=== PATIENT | female | born 1980 | race Two or more races ===

== ENCOUNTER 2020-07-24 21:42 | Emergency (ER) | payer OTHER ==
[2020-07-24 21:48] VITALS: BP 124/81; PULSE 110; TEMP 98.3; BMI 27.3
[2020-07-24] MEDS ORDERED: LIDOCAINE PATCH REMOVAL MC SCH (22:00)
[2020-07-24] MEDS ORDERED: LIDOCAINE 5% TOPICAL PATCH TP ONE (23:01)
== END 2020-07-25 01:25 | disposition home or self-care (01) ==
LOC: JER 21:42
DX: M54.2 Cervicalgia (principal); M54.5 Low back pain
CPT/HCPCS: 70450-TC; 71046-TC-FY; 72125-TC; 93005; 93010; 99285-25